=== PATIENT | male | born 1955 | race Caucasian/White ===

== ENCOUNTER → 2023-12-17 10:35 | Outpatient (REF) | payer OTHER, SELFPAY | LOC: RCS 10:35 | PROVIDERS: ATTENDING PHYSICIAN Student in an Organized Health Care Education/Training Program; FAMILY PHYSICIAN Family Medicine | DX: Z01.818 Encounter for other preprocedural examination (principal); R01.1 Cardiac murmur, unspecified | CPT/HCPCS: 93005; 93306; Q9950 ==